=== PATIENT | female | born 1980 | race Caucasian/White ===

== ENCOUNTER 2020-11-08 08:18 | Emergency (ER) | payer OTHER ==
--- OUTSIDE RECORDS SUMMARY | 2020-11-08 08:55 | XMS REPORT | Continuity of Care Document ---
:1980 Author Organization [facility] t Address [address] [place] [address] Care Team Providers Name Role Phone Unavailable Unavailable Unavailable Payers Payer Name Policy Type Policy Number Effective Date Expiration Date S ource Problems Condition Condition Condition Status Onset Resolution Last Treating Co mments Source Name Details Category Date Date Treatment Clinician Date Rheumatoid Diagnosis Active 2020-09-15 Memoria arthritis 02:45:16 l of Francis multiple Rheumatoid sites arthritis without of rheumatoid multiple factor sites without rheumatoid factor Active Diagnosis 09/15/2020 [facility] Pain in Problem Active 2020-09-15 Leif angelina right hand 02:45:16 l Pain in Rfancis right hand Active Problem 09/15/2020 [facility] Vitamin D Diagnosis Active 2020-09-15 Memoria deficiency 02:45:16 l Vitamin Huson D deficiency Active Diagnosis 09/15/2020 [facility] Encounter Diagnosis Active 2020-09-15 Memoria for 02:45:16 l long-term Huson (current) Encounter use of for other long-term medication (current) s use of other medication s Active Diagnosis 09/15/2020 [facility] Inflammato Problem Active 2020-09-15 M emoria ry 02:45:16 l polyarthri Kevyn n tis Inflammato ry polyarthri tis Active Problem 09/15/2020 [facility] Pain in Problem Active 2020-09-15 Leif angelina left hand 02:45:16 l Pain in Francis left hand Active Problem 09/15/2020 [facility] Fatigue, Problem Active 2020-09-15 Mem oria unspecifie 02:45:16 l d type Fatigue, Kevyn n unspecifie d type Active Problem 09/15/2020 [facility] Elevated Diagnosis Active 2020-09-15 M emoria C-reactive 02:45:16 l protein Elevated Sydnee nn (CRP) C-reactive protein (CRP) Active Diagnosis 09/15/2020 [facility] Other Diagnosis Active 2020-09-15 Mem oria specified 02:45:16 l counseling Other Sydnee nn specified counseling Active Diagnosis 09/15/2020 [facility] Allergies, Adverse Reactions, Alerts Allergy Allergy Status Severity Reaction(s) Onset Inactive Treating Comm ents Source Name Type Date Date Clinician PCN PCN Active rash 2019-11 Memoria 0-28 l 00:00: Francis 00 No Known DA Active U 2009-0 [facility] No Known DA Active U 2009-0 [facility] Food -16 [facility] [place] No Known DA Active U 2009-0 [facility] Other -16 [facility] [place] PENICILL DA Active U 2009-0 [facility] IN -16 [facility] [place] Medications Ordered Filled Start Stop Current Ordering Indication Dosage Frequency Signature Comments Components Source Medication Medication Date Date Medication? Clinician (SIG) Name Name Hydroxychlo 2019-11 Yes Lolis 1 tablet M emoria roquine 0-29 Vilardo l Sulfate 02:45: Singulair 2019-11 Yes Lolis not Memoria 0-29 Vilardo defined l 02:45: Lexapro 2019-11 Yes Lolis 0.5 tablet Mem oria 0-29 Vilardo l 02:45: IUD's 2019-11 Yes Lolis not Memoria 0-29 Vilardo defined l 02:45: NIFEdipine 2019-11 Yes Lolis 1 capsule M emoria 0-29 Vilardo l 02:45: Zyrtec 2019-11 Yes Lolis 1 tablet Memori a Allergy 0-29 Vilardo l 02:45: Omeprazole 2019-11 Yes Lolis 1 capsule M emoria 0-29 Vilardo l 02:45: Huson 16 Omeprazole 2019-0 Yes Sri 1 capsule Memoria 4-08 Vo l 02:45: Francis 33 Zyrtec 2020-0 Yes Sri 1 tablet M emoria Allergy 4-08 Vo l 02:45: Huson 33 Vitamin D 2019-0 Yes Lolis 1 tablet Mem oria 5-21 Vilardo l 00:00: Francis 00 Procedures This patient has no known procedures. Encounters Start End Encounter Admission Attending Care Care Encounter Source Date/Time Date/Time Type Type Clinicians Facility Department ID 2020-09-14 2020-09-14 Outpatient [facility] - [facility] - [id number] [facility] 09:00:00 09:00:00 [facility] 2020-02-23 2020-02-23 Outpatient PRL - PRL - [id number] [facility] 14:50:00 14:50:00 [facility] 2020-02-23 2020-02-23 Outpatient PRL - PRL - [id number] eClinic 13:15:00 13:15:00 [facility] 2020-02-16 2020-02-16 Outpatient PRL - PRL - [id number] e[facility]inic 15:41:00 15:41:00 [facility] Results This patient has no known results.
--- OUTSIDE RECORDS SUMMARY | 2020-11-08 08:55 | XMS REPORT ---
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 Assessment Vitamin D deficiency E55.9 Active Assessment Encounter for long-term (current) Z79.899 Active use of other medications Assessment Elevated C-reactive protein (CRP) R79.82 Active Assessment Other specified counseling Z71.89 A ctive Problem Vitamin D deficiency E55.9 Active Problem Rheumatoid arthritis of multiple M06.09 Active sites without rheumatoid factor Problem Elevated C-reactive protein (CRP) R79.82 Active Problem Pain in left hand M79.642 Active Problem Encounter for long-term (current) Z79.899 Active use of other medications Problem Fatigue, unspecified type R53.83 Ac tive Problem Pain in right hand M79.641 Active Medications Medication Code Code Instructions Start End Status Dosage System Date Date [facility] [address]-94 Active not defined Hydroxychloroquine ND 51372626358 200 MG Orally Act osiel 1 tablet Sulfate twice a day (bid) IUD's ND 0 Active not defined Zyrtec Allergy [facility] 00965896567 10 MG Orally Active 1 tablet Once a day NIFEdipine ND 87430355654 20 MG Orally Active 1 ca psule Once a day Omeprazole ND 44142832843 20 MG Orally 3 Active 1 capsule times a week Lexapro ND 15225703324 20 MG Orally Active 0.5 Once a day tablet Vitamin D [facility] [id number] [address] April 07, Active 1 tablet Orally Once a 2019 day Results No Known Results Summary Purpose [employer] Submission
--- OUTSIDE RECORDS SUMMARY | 2020-11-08 08:55 | XMS REPORT | Continuity of Care Document ---
:1980 Author Organization [employer] Care Team Providers Name Role Phone [facility] Unavailable Un available Problems Problem Status Onset Classification Date Comments Sourc e Date Reported Rheumatoid Active Diagnosis 09/15/[address] arthritis of of [place] multiple sites without rheumatoid factor Pain in right Active Problem 09/15/2020 [facility] Vitamin D Active Diagnosis 09/15/2020 [facility] deficiency [facility] Encounter for Active Diagnosis 09/15/2020 [facility] long-term of [place] (current) use of other medications Inflammatory Active Problem 09/15/2020 [facility] polyarthritis [facility] Pain in left hand Active Problem 09/15/2020 [facility] Fatigue, Active Problem 09/15/2020 [facility] unspecified type of [place] Elevated Active Diagnosis 09/15/2020 [facility] C-reactive of [place] protein (CRP) Other specified Active Diagnosis 09/15/2020 [facility] counseling [facility] Medications Medication Details Route Status Patient Ordering Order Source Instructions Provider Date Vitamin D 1 tablet Orally Active 2000 UNIT Vilardo Rheum Orally Once a 019 Ctr of day [facility] Hydroxychloroquine 1 tablet Orally Active 200 MG Orally Vilardo Rheum Sulfate twice a day Ctr of (bid) [facility] Omeprazole 1 capsule Orally Active 20 MG Orally 3 Vo Rheu m times a week [facility] Singulair not NA Active Vilardo [facility] defined [facility] Lexapro 0.5 Orally Active 20 MG Orally Vilardo Rheum tablet Once a day [facility] Zyrtec Allergy 1 tablet Orally Active 10 MG Orally Vo Rhe um Once a day [facility] IUD's not NA Active Vilardo Rhe[facility] defined [facility] NIFEdipine 1 capsule Orally Active 20 MG Orally Vilardo Rheum Once a day [facility] Zyrtec Allergy 1 tablet Orally Active 10 MG Orally Vilardo Rhe um Once a day [facility] Omeprazole 1 capsule Orally Active 20 MG Orally 3 Vilardo Rheu m times a week [facility] Allergies, Adverse Reactions, Alerts Substance Category Reaction Severity Reaction Status Date Comments S ource type Reported PCN Adverse rash Adverse Active 09/14/2020 Rhe[facility] Reaction Reaction [facility] Immunizations No Data Provided for This Section Results No Data Provided for This Section Pathology Reports No Data Provided for This Section Diagnostic Reports No Data Provided for This Section Consultation Notes No Data Provided for This Section Discharge Summaries No Data Provided for This Section History and Physicals No Data Provided for This Section Vital Signs No Data Provided for This Section Encounters No Data Provided for This Section Procedures No Data Provided for This Section Assessment and Plan No Data Provided for This Section Plan of Care No Data Provided for This Section Social History No Data Provided for This Section Family History No Data Provided for This Section Advance Directives No Data Provided for This Section Functional Status No Data Provided for This Section
[2020-11-08] MEDS ORDERED: IBUPROFEN 400 MG TAB ONE (09:15)
--- NOTE | 2020-11-08 09:51 | RAD REPORT ---
EXAM DESCRIPTION: RAD -Hand Left 3 View - 11/08/2020 9:23 am CLINICAL HISTORY: Left hand pain status post injury FINDINGS: No fracture or dislocation is seen. A radiopaque foreign body is not seen
--- NOTE | 2020-11-08 10:15 | ER ---
Nurse's Notes [facility] Name: Breanne Em Age: 40 yrs Sex: Female : 1980 Arrival Date: 11/08/2020 Time: 08:20 Bed 4 Private MD: Diagnosis: Bitten by dog;Puncture wound without foreign body of left hand Presentation: 11/08 08:34 Chief complaint: Patient states: bit by one of her dogs to the left hand. She was sv trying to break them up. Coronavirus screen: Client denies travel out of the [place] in the last 14 days. At this time, the client does not indicate any symptoms associated with coronavirus-19. Ebola Screen: No symptoms or risks identified at this time. Initial Sepsis Screen: Does the patient meet any 2 criteria? No. Patient's initial sepsis screen is negative. Does the patient have a suspected source of infection? No. Patient's initial sepsis screen is negative. Risk Assessment: Do you want to hurt yourself or someone else? Patient reports no desire to harm self or others. Onset of symptoms was November 08, 2020. 08:34 Method Of Arrival: Ambulatory sv 08:34 Acuity: SHERON 3 sv Triage Assessment: 08:39 Bite description: bite sustained to heel of left hand by a dog, animal information: bp Appearance: appeared well, is superficial, vaccination(s) is current, was sustained 30-60 minutes ago. Animal status: known and can be quarantined. General: Appears in no apparent distress. comfortable, Behavior is calm, cooperative, appropriate for age. Pain: Complains of pain in left hand. EENT: No deficits noted. Neuro: No deficits noted. Cardiovascular: No deficits noted. Respiratory: No deficits noted. GI: No signs and/or symptoms were reported involving the gastrointestinal system. : No signs and/or symptoms were reported regarding the genitourinary system. Derm: No deficits noted. Musculoskeletal: No deficits noted. Injury Description: Bite sustained to left hand caused by a dog, is superficial, was sustained 30-60 minutes ago. Historical: - Allergies: 08:36 PENICILLINS; sv - PMHx: 08:36 Hypertension; Rheumatoid Arthritis; seasonal allergies; sv - PSHx: 08:36 Tonsillectomy; Adenoids; Ear Tubes; sv - Immunization history:: Last tetanus immunization: up to date. - Social history:: Smoking status: . Screenin:41 Abuse screen: Denies threats or abuse. Denies injuries from another. Nutritional bp screening: No deficits noted. Tuberculosis screening: No symptoms or risk factors identified. Fall Risk None identified. Assessment: 08:41 General: SEE TRIAGE NOTE. Derm: Skin is intact, is healthy with good turgor, Skin is bp pink, warm \T\ dry. 10:13 Reassessment: Patient appears in no apparent distress at this time. No changes from bp previously documented assessment. Patient and/or family updated on plan of care and expected duration. Pain level reassessed. Patient is alert, oriented x 3, equal unlabored respirations, skin warm/dry/pink. ALL CURRENT ORDERS COMPLETE, DISPO PENDING. 10:23 Reassessment: PT D/C HOME AMBULATORY, DX WITH DOG BITE. bp Vital Signs: 08:34 BP 106 / 57; Pulse 60; Resp 17; Temp 97; Pulse Ox 100% ; Weight 92.99 kg; Height 5 ft. sv 7 in. (170.18 cm); 09:59 BP 100 / 73; Pulse 60; Resp 16; Temp 97.6(TE); Pulse Ox 100% on R/A; mh5 08:34 Body Mass Index 32.11 (92.99 kg, 170.18 cm) sv ED Course: 08:20 Patient arrived in ED. ag5 08:35 Triage completed. sv 08:35 Luke Aguilar, RN is Primary Nurse. bp 08:36 Arm band placed on. sv 08:41 Patient has correct armband on for positive identification. Bed in low position. Call bp light in reach. Side rails up X2. 08:45 Austyn Chang MD is Attending Physician. kdr 09:02 Wound care: to puncture located on left hand was cleaned with Betadine, irrigated with bp normal saline, dressed with Neosporin. 09:02 Wound care: to puncture located on left hand and heel of left hand was cleaned with mh5 Betadine, soaked in normal saline solution, irrigated with normal saline. 09:03 Pulse ox on. NIBP on. mh5 09:23 Hand Left 3 View XRAY In Process Unspecified. EDMS 10:23 No provider procedures requiring assistance completed. Patient did not have IV access bp during this emergency room visit. Administered Medications: 09:02 Not Given (PT ALREADY CURRENT): Tetanus-Diphtheria Toxoid Adult 0.5 ml IM once bp 09:02 Drug: Ibuprofen 800 mg Route: PO; bp Outcome: 10:14 Discharge ordered by . kdr 10:23 Discharged to home ambulatory. bp 10:23 Condition: stable 10:23 Discharge instructions given to patient, Instructed on discharge instructions, follow up and referral plans. medication usage, wound care, Demonstrated understanding of instructions, follow-up care, medications, wound care, Prescriptions given X 3. 10:24 Patient left the ED. bp Signatures: Dispatcher [employer] Mary Tomlinson RN RN Austyn Olivarez MD MD kdr Martinez, [facility] Luke Aguilar RN RN Lea Coelho 5
--- NOTE | 2020-11-08 10:15 | EDPHYS ---
Physician Documentation [facility] Name: Breanne Em Age: 40 yrs Sex: Female : 1980 Arrival Date: 11/08/2020 Time: 08:20 Bed 4 Private MD: ED Physician Austyn Chang HPI: 11/08 09:32 This 40 yrs old Unknown Female presents to ER via Ambulatory with complaints of Dog kdr Bite. 09:32 The patient was bitten on the palmar aspect of proximal phalanx of left thumb and Left kdr first web space. Onset: The symptoms/episode began/occurred suddenly, just prior to arrival. Animal information: The animal was reported to appear healthy. Animal's vaccinations are up to date. The animal is known and can be quarantined. Secondary to the bite the patient reports a contusion, a puncture wound, that is superficial, that is small. Associated signs and symptoms: The patient has no apparent associated signs or symptoms. Severity of symptoms: At their worst the symptoms were mild, in the emergency department the symptoms are unchanged. The patient has not experienced similar symptoms in the past. The patient has not recently seen a physician. The patient was breaking up a fight between three dogs. Historical: - Allergies: 08:36 PENICILLINS; sv - PMHx: 08:36 Hypertension; Rheumatoid Arthritis; seasonal allergies; sv - PSHx: 08:36 Tonsillectomy; Adenoids; Ear Tubes; sv - Immunization history:: Last tetanus immunization: up to date. - Social history:: Smoking status: . ROS: 09:32 Constitutional: Negative for fever, chills, and weight loss. kdr 09:32 MS/extremity: Positive for injury or acute deformity, abrasion, contusion, puncture, tenderness, of the Left first web space. 09:32 Skin: Positive for abrasion(s), erythema, of the palmar aspect of left forearm. Exam: 09:32 Constitutional: This is a well developed, well nourished patient who is awake, alert, kdr and in no acute distress. Head/Face: Normocephalic, atraumatic. 09:32 Musculoskeletal/extremity: Extremities: grossly normal except: noted in the palmar aspect of left forearm: Vital Signs: 08:34 BP 106 / 57; Pulse 60; Resp 17; Temp 97; Pulse Ox 100% ; Weight 92.99 kg; Height 5 ft. sv 7 in. (170.18 cm); 09:59 BP 100 / 73; Pulse 60; Resp 16; Temp 97.6(TE); Pulse Ox 100% on R/A; mh5 08:34 Body Mass Index 32.11 (92.99 kg, 170.18 cm) sv MDM: 09:32 Data reviewed: vital signs, nurses notes, radiologic studies. Counseling: I had a kdr detailed discussion with the patient and/or guardian regarding: the historical points, exam findings, and any diagnostic results supporting the discharge/admit diagnosis, radiology results, the need for outpatient follow up. 10:14 Patient medically screened. kdr 11/08 08:51 Order name: Hand Left 3 View XRAY; Complete Time: 10:13 kdr Administered Medications: 09:02 Not Given (PT ALREADY CURRENT): Tetanus-Diphtheria Toxoid Adult 0.5 ml IM once bp 09:02 Drug: Ibuprofen 800 mg Route: PO; bp Disposition: 11/08/20 10:14 Discharged to Home. Impression: Bitten by dog, Puncture wound without foreign body of left hand. - Condition is Stable. - Discharge Instructions: Animal Bite, [id number]. - Prescriptions for Cipro 500 mg Oral Tablet - take 1 tablet by ORAL route every 12 hours for 7 days; 14 tablet. Clindamycin HCl 300 mg Oral Capsule - take 1 capsule by ORAL route every 6 hours for 7 days; 28 capsule. Tramadol 50 mg Oral Tablet - take 1 tablet by ORAL route every 8 hours as needed; 12 tablet. - Medication Reconciliation Form, Thank You Letter, Antibiotic Education, Prescription Opioid Use form. - Follow up: Private Physician; When: 2 - 3 days; Reason: If symptoms return, Further diagnostic work-up, Recheck today's complaints, Continuance of care, Re-evaluation by your physician. - Problem is new. - Symptoms have improved. Signatures: Dispatcher [employer] Mary Tomlinson, CARRIE RN Austyn Chang MD MD [facility] Luke Aguilar RN RN bp Corrections: (The following items were deleted from the chart) 10:24 10:14 11/08/2020 10:14 Discharged to Home. Impression: Bitten by dog; Puncture wound bp without foreign body of left hand. Condition is Stable. Forms are Medication Reconciliation Form, Thank You Letter, Antibiotic Education, Prescription Opioid Use. Follow up: Private Physician; When: 2 - 3 days; Reason: If symptoms return, Further diagnostic work-up, Recheck today's complaints, Continuance of care, Re-evaluation by your physician. Problem is new. Symptoms have improved. kdr
[2020-11-09 06:53] VITALS: O2SAT 100
[2020-11-09 06:55] VITALS: BP 100/73; TEMP 97.6
== END 2020-11-08 10:24 | disposition home or self-care (01) ==
LOC: ER 08:18
DX: S61.432A Puncture wound without foreign body of left hand, initial encounter (principal); W54.0XXA Bitten by dog, initial encounter; Y93.89 Activity, other specified; Y92.9 Unspecified place or not applicable; I10 Essential (primary) hypertension; Z88.0 Allergy status to penicillin
CPT/HCPCS: 99284

== ENCOUNTER 2023-12-27 07:35 | Day surgery (SDC) | payer OTHER ==
[2023-12-27] MEDS ORDERED: CEFAZOLIN SODIUM 2 GM/VIAL ONE (08:16)
[2023-12-27] MEDS ORDERED: Ringers Lactate 1,000 ML IV ONE (08:17)
[2023-12-27 08:26] LABS: Absolute Lymphocytes (CBC) 1.1 K/uL (0.7-4.9); Hematocrit 40.1 % (36.0-45.0); Lymphocytes % 23.2 % (15.3-44.8); MCV 83.8 fL (80-100); MPV 8.8 fL (7.6-11.3); Platelets 236 thou/uL (152-406); RBC Red Blood Cell Count 4.78 M/uL (3.86-4.86)
[2023-12-27 08:40] LABS: Albumin 3.7 g/dL (3.4-5.0); Bilirubin Total 0.7 mg/dL (0.2-1.0); Potassium 4.5 mEq/L (3.5-5.1); Protein, Total 7.4 g/dL (6.4-8.2)
[2023-12-27] MEDS ORDERED: LIDOCAINE 2% MPF 5 ML VIAL ONE (08:44)
[2023-12-27] MEDS ORDERED: ONDANSETRON 4 MG/2 ML VIAL ONE (08:44)
[2023-12-27] MEDS ORDERED: MIDAZOLAM HCL 2 MG/2 ML INJ ONE (08:44)
[2023-12-27] MEDS ORDERED: ROCURONIUM 50 MG/5 ML VIAL IV ONE (08:44)
[2023-12-27] MEDS ORDERED: propofoL 200 MG/20 ML VIAL IV ONE (08:44)
[2023-12-27] MEDS ORDERED: FENTANYL CITR 100 MCG/2 ML ONE ×2 (08:44→09:15)
[2023-12-27] MEDS: CLINDAMYCIN 600MG/D5W 50 ML IV ONE (08:50)
[2023-12-27] MEDS: BUPIVACAINE 0.25% PF 30 ML VIAL ONE (09:08)
[2023-12-27] MEDS ORDERED: EPHEDRINE SULF 50 MG/ML VIAL ONE (09:13)
[2023-12-27] MEDS ORDERED: KETOROLAC 30 MG/ML INJ ONE (09:35)
[2023-12-27] MEDS ORDERED: NEOSTIGMINE 1 MG/ML -10 ML VIAL ONE (09:35)
[2023-12-27] MEDS ORDERED: GLYCOPYRROLATE 0.2 MG/ML SYR ONE (09:35)
--- NOTE | 2023-12-27 09:45 | P.OP ---
Preoperative diagnosis: Chronic Cholecystitis Postoperative diagnosis: Chronic Cholecystitis Primary procedure: Laparoscopic Cholecystectomy with ICG Cholangiography Anesthesia: GETA + Local Estimated blood loss: <5cc Specimen: Gallbladder Findings: Short Cystic Duct, Ant/post branch cystic artery Complications: None Implants: Noa Hemostatic Powder Transferred to: Recovery Room Condition: Good
[2023-12-27] MEDS: FENTANYL CITR 100 MCG/2 ML ONE (10:23)
[2023-12-27] MEDS: HYDROCODONE/APAP 7.5/325 MG TAB ONE (11:04)
--- NOTE | 2023-12-27 11:05 | OP ---
Date of Procedure: 12/27/2023 Surgeon: Ryland Bullock MD, Preoperative Diagnosis: Chronic cholecystitis. Postoperative Diagnosis: Chronic cholecystitis. Procedure Performed: Laparoscopic cholecystectomy with indocyanine green cholangiography. Anesthesia: General endotracheal plus local with 0.25% Marcaine. Estimated Blood Loss: Less than 5 cc. Specimen: Gallbladder. Findings: The patient had a short cystic duct and had an anterior posterior branch of the cystic art castro noted. Complications: None immediate. Implants: Noa hemostatic powder. Disposition: The patient transferred to recovery room in good condition. Procedure In Detail: After informed consent was obtained, the patient prepped and draped in the usua l sterile fashion. After adequate anesthesia achieved, anesthetized supraumbilical area down to subc utaneous tissues. An 11 blade was used to incise the skin and a 5 mm 0 degree optical trocar was int roduced in the abdomen without complication. Insufflation obtained to 15 mmHg at this time. There w as no injury to vital structure upon entering the abdomen. Two additional trocars were placed, one i n the epigastrium, one in the right upper quadrant. Both of these were similarly anesthetized, sharp ly incised and 5 mm trocars were placed under direct visualization without complication. The umbilic al trocar was then upsized to 12 mm under direct visualization without incident or complication. The patient positioned head up right-side up position. Ratcheted grasper was used to grasp the patient' s gallbladder which had significant adipose tissue overlying the anterior surface of it and had a nora e dome appearance. At this point, I dissected down to the Jessica's pouch of the gallbladder, ident ifying structures entering the gallbladder. These were identified as the cystic duct which was short and an anterior and posterior branch of the cystic artery. Critical view of safety obtained at this point. I dissected the area and skeletonized all structures in the region for proper anatomic ident ification to obtain the critical view of safety as described above. After I encircled these structur es, I placed double titanium clips on the proximal side and singly on the distal side of the cystic d uct and the anterior and posterior branch of the cystic artery. At this point, I ligated these struc tures. There was a distal clip that came off the anterior branch of the cystic artery, and as such, I applied an additional clip to this area. There was no bleeding throughout the procedure, however. I then removed the gallbladder from the hepatic fossa after performing indocyanine green cholangiogr aphy confirming the anatomy as described above. The gallbladder was then placed in EndoCatch bag, re moved through the umbilical trocar site, sent off for pathologic examination. I then performed indoc yanine green cholangiography once again and showed bile in normal orientation flowing without any renu dence of bile leakage from the hepatic bed or from the cystic duct stump at this point. As there was a clip misfire on the anterior branch of the cystic artery, one clip remained in perfect position, t he second one was applied after the clip fell off, and as such, I decided to place some Noa hemost atic powder into the subhepatic space for additional hemostatic protection. At this point, prior to placing the Noa, I irrigated the area copiously and suctioned out completely dry. ICG cholangiogr aphy once again confirmed there was no leakage of bile throughout the procedure. There was no bleedi ng at the end the procedure or throughout the procedure. At this point, Noa hemostatic powder was applied at the subhepatic space through the laparoscopic deployment tubing. I then placed the patie nt back in neutral position. A small amount of effluent was suctioned out from the suprahepatic spac e and the umbilical trocar site was then closed using a Bhupinder-Jack suture passer with 0 Vicryl i nterrupted fashion with good approximation tissues. The abdomen was completely desufflated under dir ect visualization without complication. All skin incisions were then copiously irrigated and closed with a 4-0 Monocryl in running fashion. Dermabond placed over top. The patient tolerated the proced ure without incident or complication, was transferred to PACU in good condition. All counts were correct at the end of the case. TK/MODL Voice ID: [id number] Report ID: [id number]
[2023-12-27 11:44] VITALS: BP 140/71; TEMP 97
[2023-12-27 12:07] VITALS: O2SAT 10
--- NOTE | 2023-12-30 13:44 | EKG ---
Test Date: 2023-12-27 Test Time: 08:54:32 Facilities Maintenance Supervisor: SHARRI MEASUREMENT RESULTS: Intervals: Rate: 79 SC: 158 QRSD: 88 QT: 374 QTc: 428 [place]: P: 62 SC: 158 QRS: 45 T: 48 INTERPRETIVE STATEMENTS: Normal sinus rhythm ST abnormality, possible digitalis effect Abnormal ECG No previous ECG available for comparison Electronically Signed On 12-30-23 13:35:35 HAT CHECKER by Jeffry Velázquez
== END 2023-12-27 11:50 | disposition home or self-care (01) ==
LOC: OR 07:35
PROVIDERS: ATTEND Surgery
PROC: BF10YZZ Fluoroscopy of Bile Ducts using Other Contrast (ICD-10-PCS; 2023-12-27)
PROC: 0FT44ZZ Resection of Gallbladder, Percutaneous Endoscopic Approach (ICD-10-PCS; principal; 2023-12-27 09:00)
DX: K81.1 Chronic cholecystitis (principal); F41.9 Anxiety disorder, unspecified; I10 Essential (primary) hypertension
CPT/HCPCS: 93005; 85025; 36415; 88304; 80053; 47563; J2704; J2710; J2001; J2250; J3010 ×3; J2405; J7120